=== PATIENT | female | born 1980 | race Caucasian/White ===

== ENCOUNTER 2021-10-19 14:35 | Emergency (ER) | payer OTHER, SELFPAY ==
[2021-10-19 14:39] VITALS: BP 127/83; PULSE 100; RESP 16; TEMP 36.6; O2SAT 99
--- NOTE | 2021-10-19 14:51 | ED.DENTAL ---
HPI - Dental/Oral General Chief complaint: Dental/Oral Stated complaint: tooth is trying to kill me Time Seen by Provider: 10/19/21 14:40 History of Present Illness HPI Narrative: Patient presents emergency room from home for dental pain. Patient states she has had pain in her left lower molar for the past 3 days states that the tooth is chipped and carious states she does not have a dentist states that she has had dental infections before and this feels similar she denies any fevers or chills sore throat or any other symptoms Related Data Allergies Allergy/AdvReac Type Severity Reaction Status Date / Time No Known Allergies Allergy Unknown Verified 10/19/21 14:42 Review of Systems Review of Systems: Gen.: Denies fevers or chills HEENT: See HPI Respiratory: Denies shortness of breath Neuro: Denies headache Skin: Denies rash Endo: Denies DM PMFSH Past Medical History Medical History (Updated 10/19/21 @ 14:53 by Noé Mathew DO) Patient denies significant medical history Social History Social History (Updated 10/19/21 @ 14:52 by Noé Mathew DO) Smoking status: Current every day smoker Exam Narrative: APPEARANCE: No acute distress, nontoxic, resting in bed HEENT: Normocephalic, atraumatic, TMs clear bilaterally, nares patent, oral mucosa moist, airway patent, tooth #17 is carious and tender palpation mild erythema no fluctuance of the gum RESPIRATORY: No respiratory distress MUSCULOSKELETAl: Moves all extremities. NEURO: Awake and alert. Following commands, speech normal, no focal deficits SKIN:: Warm, dry. Normal Color PSYCHIATRIC: Normal affect/mood Course Course Emergency Course: Discussed with patient results of workup and diagnosis. Discussed need for follow-up with primary care, proper use of medication, and reasons to return to the emergency department. Patient understands and agrees to current treatment plan Vital Signs Vital signs: Vital Signs Temperature 97.8 F 10/19/21 14:39 Pulse Rate 100 10/19/21 14:39 Respiratory Rate 16 10/19/21 14:39 Blood Pressure 127/83 10/19/21 14:39 Pulse Oximetry 99 10/19/21 14:39 Temperature 97.8 F 10/19/21 14:39 Pulse Rate 100 10/19/21 14:39 Respiratory Rate 16 10/19/21 14:39 Blood Pressure 127/83 10/19/21 14:39 Pulse Oximetry 99 10/19/21 14:39 Discharge Plan Discharge Clinical Impression: Dental abscess, Odontalgia Patient Disposition: Home, Self-Care Condition: Stable Instructions: Antibiotic Form, Dental Abscess (ED), Toothache (ED) Additional Instructions: Return for increasing pain fever or any other symptoms of concern Prescriptions: New penicillin V potassium 500 mg tablet 500 mg PO TID Qty: 30 RF: 0 ibuprofen [IBU] 600 mg tablet 600 mg PO Q6H PRN (Reason: pain) Qty: 20 RF: 0 Follow-up/Referrals: [facility] [place] [Outside] - [address] [facility] [Outside] - 2 Days PHYSICIAN,OBIEE ARCHITECT [Primary Care Provider] - Stand Alone Forms: Work/School Release IP Time of Disposition: 14:54
[2021-10-19] MEDS: PENICILLIN V POTASSIUM 250 MG TABLET 500 MG PO (14:57)
[2021-10-19] MEDS: IBUPROFEN 600 MG TABLET PO (14:57)
== END 2021-10-19 15:14 | disposition home or self-care (01) ==
PROVIDERS: Emergency Provider Emergency Medicine
DX: K04.7 Periapical abscess without sinus (principal)
CPT/HCPCS: 99283; A9270

== ENCOUNTER 2021-11-19 10:18 | Emergency (ER) | payer OTHER, SELFPAY ==
[2021-11-19 11:18] VITALS: BP 151/95; PULSE 74; RESP 16; TEMP 36.6; O2SAT 96
--- NOTE | 2021-11-19 12:41 | ED.GENADULT ---
HPI - General Adult General Chief complaint: Unspecified Stated complaint: Needs Antibitoics Time Seen by Provider: 11/19/21 11:52 History of Present Illness HPI narrative: Patient is a 41-year-old female who presents ER with pain at tooth #18. She recently finished on penicillin. She has a bad tooth in the area. Reports over the last 4 days she has had increased pain and difficulty opening her mouth. No difficulty breathing or swallowing. Reports she would like some antibiotics and some anti-inflammatories. 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 She does have a dentist she can follow-up with. She has no pain in her neck and maintains full range of motion. No difficulty tolerating her oral secretions. Related Data Allergies Allergy/AdvReac Type Severity Reaction Status Date / Time No Known Allergies Allergy Unknown Verified 10/19/21 14:42 Review of Systems Constitutional: Constitutional: Denies chills and Denies fever(s) ENT: Denies lip swelling, Denies neck pain, Denies throat swelling and Denies tongue swelling Comments: Dental pain Gastrointestinal: Gastrointestinal: Denies dysphagia, Denies nausea and Denies vomiting PMFSH Past Medical History Medical History (Updated 11/19/21 @ 12:44 by Medhat Russ MD) Patient denies significant medical history Surgical History Surgical History (Updated 11/19/21 @ 12:42 by Medhat Russ MD) No pertinent past surgical history Social History Social History (Updated 11/19/21 @ 12:43 by Medhat Russ MD) Smoking status: Current every day smoker Substance use: former Exam Narrative: GENERAL: Well-appearing, well-nourished, and in no acute distress. HEAD: Normocephalic, atraumatic. ENT: Mucous membranes moist. Tenderness around tooth 18 without fluctuance or swelling. No facial swelling. Patient with discomfort moving her mouth. Tolerating oral secretions without issue. NECK: Supple. No neck tenderness with normal range of motion. CHEST: Clear to auscultation. No respiratory distress. No stridor. NEURO: Alert and oriented x3. PSYCH: Normal mood and affect. Course Course Emergency Course: Patient declines any imaging of the face or neck. She would only like antibiotics and pain medication after our discussion. Vital Signs Vital signs: Vital Signs Temperature 97.8 F 11/19/21 11:18 Pulse Rate 74 11/19/21 11:18 Respiratory Rate 16 11/19/21 11:18 Blood Pressure 151/95 H 11/19/21 11:18 Pulse Oximetry 96 11/19/21 11:18 Temperature 97.8 F 11/19/21 11:18 Pulse Rate 74 11/19/21 11:18 Respiratory Rate 16 11/19/21 11:18 Blood Pressure 151/95 H 11/19/21 11:18 Pulse Oximetry 96 11/19/21 11:18 Medical Decision Making Vital Signs Vital Signs: Vital Signs Temperature 97.8 F 11/19/21 11:18 Pulse Rate 74 11/19/21 11:18 Respiratory Rate 16 11/19/21 11:18 Blood Pressure 151/95 H 11/19/21 11:18 Pulse Oximetry 96 11/19/21 11:18 Temperature 97.8 F 11/19/21 11:18 Pulse Rate 74 11/19/21 11:18 Respiratory Rate 16 11/19/21 11:18 Blood Pressure 151/95 H 11/19/21 11:18 Pulse Oximetry 96 11/19/21 11:18 Discharge Plan Discharge Clinical Impression: Pain, dental Patient Disposition: Home, Self-Care Condition: Stable Instructions: Antibiotic Form, Toothache (ED) Additional Instructions: Return to the ER if you have increased pain, you have facial swelling, you have difficulty breathing or swallowing, or you have additional concerns. Prescriptions: New ibuprofen 600 mg tablet 600 mg PO TID Qty: 20 RF: 0 amoxicillin-pot clavulanate 875-125 mg tablet 1 tablet PO Q12H Qty: 14 RF: 0 No Action penicillin V potassium 500 mg tablet 500 mg PO TID Qty: 30 RF: 0 ibuprofen [IBU] 600 mg tablet 600 mg PO Q6H PRN (Reason: pain) Qty: 20 RF: 0 Follow-up/Referrals: PHYSICIAN,STRAW HAT PRESSER [Primary Care Provider] -
[2021-11-19 13:00] VITALS: BP 146/90; PULSE 74; RESP 16; TEMP 36.7; O2SAT 98
== END 2021-11-19 13:03 | disposition home or self-care (01) ==
PROVIDERS: Emergency Provider Emergency Medicine
DX: K08.89 Other specified disorders of teeth and supporting structures (principal); F17.210 Nicotine dependence, cigarettes, uncomplicated
CPT/HCPCS: 99283

== ENCOUNTER 2023-01-23 05:49 | Emergency (ER) | payer OTHER, SELFPAY ==
[2023-01-23 05:53] VITALS: BP 125/68; PULSE 69; RESP 20; TEMP 36.9; O2SAT 98
--- NOTE | 2023-01-23 07:04 | ED.SKABFB ---
HPI - Skin/Abscess/Foreign Bdy General Chief complaint: Skin/Abscess/Foreign Body Stated complaint: skin complaint Time Seen by Provider: 01/23/23 06:21 History of Present Illness HPI narrative: This is a 42-year-old female, with past medical history of of unknown mass of the right breast removed at 12 years old, who presents emergency department complaining of a mass on the anterior chest wall for the past 6 months. The patient noticed gradual increase in size in the area. It is not tender, though is a cause of anxiety. She asked to have it checked out today. Related Data Allergies Allergy/AdvReac Type Severity Reaction Status Date / Time No Known Allergies Allergy Unknown Verified 01/23/23 06:15 Review of Systems Review of Systems: CONSTITUTIONAL: Denies fever, chills, or sweats. CARDIOVASCULAR: Denies chest pain, palpitations, or edema. RESPIRATORY: Denies cough or dyspnea. GASTROINTESTINAL: Denies abdominal pain, nausea, vomiting, or diarrhea. GENITOURINARY: Denies dysuria or hematuria. SKIN: Mass of the skin of the chest denies rash or itching. MUSCULOSKELETAL: Denies back pain, joint pain, or myalgia. NEUROLOGIC: Denies headache, numbness, dizziness, or weakness. PSYCHIATRIC: Denies anxiety or depression. PMFSH Past Medical History Medical History (Updated 01/23/23 @ 07:28 by Juno Manzo MD) Patient denies significant medical history Surgical History Surgical History No pertinent past surgical history Social History Social History Smoking status: Current every day smoker Substance use: former Exam Narrative: GENERAL: Well-appearing, well-nourished, and in no acute distress. HEAD: Normocephalic, atraumatic. EYES: PERRLA and EOMI. CHEST: Clear to auscultation. No respiratory distress. No wheezes rales or rhonchi HEART: Regular rate and rhythm. No murmur heard. Normal peripheral pulses. ABDOMEN: Soft, nontender, nondistended, normal active bowel sounds. EXTREMITIES: Normal range of motion. No edema. SKIN: A nontender, mobile, soft mass is palpated on the anterior chest wall, just to the left of the sternal border at the third rib. Warm, dry, no rash. NEURO: No focal deficits. Alert and oriented x3. PSYCH: Normal mood and affect. Course Course Emergency Course: 07:00 - Bedside ultrasound by me is not concerning for abscess. I suspect a lipoma. I advised the patient to follow-up with her primary care doctor and potentially a process improvement analyst. Discussed return and emergency precautions including signs/symptoms of abscess and malignant mass. The patient voiced understanding and is comfortable with the plan. All questions answered to her satisfaction Vital Signs Vital signs: Vital Signs Temperature 98.5 F 01/23/23 05:53 Pulse Rate 69 01/23/23 05:53 Respiratory Rate 20 01/23/23 05:53 Blood Pressure 125/68 01/23/23 05:53 Pulse Oximetry 98 01/23/23 05:53 Oxygen Delivery Room Air 01/23/23 05:53 Temperature 98.5 F 01/23/23 05:53 Pulse Rate 69 01/23/23 05:53 Respiratory Rate 20 01/23/23 05:53 Blood Pressure 125/68 01/23/23 05:53 Pulse Oximetry 98 01/23/23 05:53 Oxygen Delivery Room Air 01/23/23 05:53 MDM - Skin/Abscess/Foreign Bdy MDM Narrative Medical decision making narrative: Plan: Bedside ultrasound, reassess Differential Diagnosis Differential diagnosis: Likely other (Lipoma, abscess, cyst, other) Discharge Plan Discharge Clinical Impression: Lipoma Patient Disposition: Home, Self-Care Condition: Stable Instructions: Antibiotic Form, Lipoma (ED) Additional Instructions: You were seen in the emergency department. Your exam is consistent with a benign lesion (lipoma). I recommend following up with a primary care doctor and potentially a process improvement analyst. If you develop fevers with swelling or redness, chest
--- NOTE | 2023-01-23 07:05 | PC.NURSE ---
Patient report received from HAIDER Rodriguez. All questions answered and care of patient assumed.
== END 2023-01-23 07:48 | disposition home or self-care (01) ==
PROVIDERS: Emergency Provider Preventive Medicine Aerospace Medicine
DX: D17.1 Benign lipomatous neoplasm of skin and subcutaneous tissue of trunk (principal); F17.200 Nicotine dependence, unspecified, uncomplicated
CPT/HCPCS: 99281

== ENCOUNTER 2023-08-10 16:35 | Emergency (ER) | payer OTHER, SELFPAY ==
--- NOTE | ~2023-08-10 | US_ITS ---
EXAMINATION: US soft tissue chest DATE: 08/10/2023 18:51 INDICATION: Chronic protruding left chest wall mass. TECHNIQUE: Multiple grayscale and Doppler ultrasound images of the region of concern at the anterior upper left chest were obtained. COMPARISON: None FINDINGS: There is a normal appearance to the subcutaneous tissues at the region of concern. No abnormal masses or fluid collections identified. Several shadowing bones likely representing the medial clavicle and the manubrium with smooth echogenic anterior margins and posterior acoustic shadowing are seen at th e region of concern. What appears likely to be the medial clavicle extends to within 3 mm of the skin surface and may represent the protruding lesion of concern which extend within 3 mm the skin surface and may represent the protruding lesion of concern. IMPRESSION: 1. No abnormal masses or fluid collections identified at the region of concern. Reviewed, dictated and finalized at location A. EN WRITER
[2023-08-10 16:52] VITALS: BP 149/81; PULSE 80; RESP 16; TEMP 36.5; O2SAT 97
--- NOTE | 2023-08-10 17:27 | ED.SKABFB ---
HPI - Skin/Abscess/Foreign Bdy General Chief complaint: Skin/Abscess/Foreign Body Stated complaint: LUMP ON CHEST NEEDS EVALUATED Time Seen by Provider: 08/10/23 17:13 Source: patient Mode of arrival: ambulatory Limitations: no limitations History of Present Illness HPI narrative: This is a 43 year old female that presents to the ER for chest wall cyst. Present for the last 2-3 years. Reports the area is visually displeasing and she would like answers as to what it is. She has been seen at several different hospitals for this and instructed to follow up with a specialist, but has not yet. Denies fever, or erythema. Related Data Allergies Allergy/AdvReac Type Severity Reaction Status Date / Time No Known Allergies Allergy Unknown Verified 08/10/23 17:03 Review of Systems Review of Systems: CONSTITUTIONAL: Denies fever SKIN: Denies rash All systems reviewed & are unremarkable except as noted in HPI and below PMFSH Past Medical History Medical History (Updated 08/10/23 @ 19:19 by Zohra Crawford PA-C) Patient denies significant medical history Surgical History Surgical History No pertinent past surgical history Social History Social History (Updated 08/10/23 @ 17:29 by Zohra Crawford PA-C) Smoking status: Former smoker Substance use: former Exam Narrative: GENERAL: Well-appearing, well-nourished, and in no acute distress. HEAD: Normocephalic, atraumatic. EYES: EOMI. CHEST: No respiratory distress. Left anterior chest wall just lateral of midline with a small, mobile cyst that is nontender to palpation. No erythema or warmth HEART: Regular rate EXTREMITIES: Normal range of motion. No edema. SKIN: Warm, dry, no rash. NEURO: No focal deficits. Alert and oriented x3. PSYCH: Normal mood and affect Course Course Emergency Course: Patient updated on workup and agrees with plan of care Vital Signs Vital signs: Vital Signs Temperature 97.7 F 08/10/23 16:52 Pulse Rate 80 08/10/23 16:52 Respiratory Rate 16 08/10/23 16:52 Blood Pressure 149/81 H 08/10/23 16:52 Pulse Oximetry 97 08/10/23 16:52 Temperature 97.7 F 08/10/23 16:52 Pulse Rate 80 08/10/23 16:52 Respiratory Rate 16 08/10/23 16:52 Blood Pressure 149/81 H 08/10/23 16:52 Pulse Oximetry 97 08/10/23 16:52 MDM - Skin/Abscess/Foreign Bdy MDM Narrative Medical decision making narrative: Patient presents to the ER for a cyst that has been present on her chest wall for the last several years. Patient is afebrile and nontoxic-appearing. There is no erythema or warmth of the area to suggest infection. Ultrasound shows no abnormal masses or fluid collections. Patient instructed to have follow-up with plastic surgery for further care. She was given warnings to return to the ER Differential Diagnosis Differential diagnosis: Likely abscess of skin or subcutaneous tissue and other (cyst, lipoma) Imaging Data Radiologist's impression: ITS Impressions Chest Ultrasound 08/10/23 18:53 IMPRESSION: 1. No abnormal masses or fluid collections identified at the region of concern. Critical Care Time Critical Care Time Critical Care Time: No Discharge Plan Discharge Clinical Impression: Cyst Patient Disposition: Home, Self-Care Condition: Stable Instructions: Cyst (ED) Additional Instructions: Return if symptoms worsen or concerns: any increase in redness, swelling, pain or fever over 101 Follow up with plastic surgery. Call to make an appointment Prescriptions: No Action penicillin V potassium 500 mg tablet 500 mg PO TID Qty: 30 0RF ibuprofen [IBU] 600 mg tablet 600 mg PO Q6H PRN (Reason: pain) Qty: 20 0RF ibuprofen 600 mg tablet 600 mg PO TID Qty: 20 0RF amoxicillin-pot clavulanate 875-125 mg tablet 1 tablet PO Q12H Qty: 14 0RF Follow-up/Referrals: Brittney Bartlett MD [Physic
[2023-08-10 19:25] VITALS: PULSE 84; RESP 20; O2SAT 100
== END 2023-08-10 19:26 | disposition home or self-care (01) ==
PROVIDERS: Emergency Provider Physician Assistant
DX: L72.9 Follicular cyst of the skin and subcutaneous tissue, unspecified (principal); Z87.891 Personal history of nicotine dependence
CPT/HCPCS: 76604; 99284